=== PATIENT | male | born 1995 | race Caucasian/White ===

== ENCOUNTER 2018-06-19 11:40 | Emergency (ER) | payer BC ==
--- NOTE | 2018-06-19 13:45 | ED ---
Abdominal Pain/Male - HPI Summary HPI Summary: Pt is a 23 y/o male who presents to [facility] c/o abdominal pain. He states hes been having LUQ pain after eating and drinking for the past week and a half. He denies any N/V/D. Pain is now 2/10 in severity. - History of Current Complaint Chief Complaint: EDAbdPain Stated Complaint: ABD PAIN,VOMITING Time Seen by Provider: 06/19/18 13:17 Hx Obtained From: Patient Onset/Duration: Gradual Onset, Lasting Weeks - 1.5, Still Present Timing: Intermittent Severity Currently: Mild Pain Intensity: 2 Pain Scale Used: 0-10 Numeric Location: Discrete At: LUQ Radiates: No Aggravating Factor(s): Food, Other: - Drink Associated Signs And Symptoms: Negative: Nausea, Vomiting, Diarrhea - Allergies/Home Medications Allergies/Adverse Reactions: Allergies Allergy/AdvReac Type Severity Reaction Status Date / Time No Known Allergies Allergy Verified 06/19/18 11:49 PMH/Surg Hx/FS Hx/Imm Hx Cardiovascular History: Denies: Hx Hypertension Respiratory History: Denies: Hx Asthma Infectious Disease History: No Infectious Disease History: Denies: Traveled Outside the [place] in Last 30 Days - Family History Known Family History: Negative: Hypertension - Social History Alcohol Use: None Hx Substance Use: No Substance Use Type: Reports: None Hx Tobacco Use: No Smoking Status (MU): Never Smoked Tobacco Review of Systems Positive: Fever Positive: Abdominal Pain - LUQ. Negative: Vomiting, Diarrhea, Nausea All Other Systems Reviewed And Are Negative: Yes Physical Exam - Summary Physical Exam Summary: Appearance: Well appearing, no pain distress Skin: warm, dry, reflects adequate perfusion Head/face: normal Eyes: EOMI, MARTHA ENT: normal Neck: supple, non-tender Respiratory: CTA, breath sounds present Cardiovascular: RRR, pulses symmetrical Abdomen: mild LUQ tenderness, soft Bowel: present Musculoskeletal: normal, strength/ROM intact Neuro: normal, sensory motor intact, A&Ox3 Triage Information Reviewed: Yes Vital Signs On Initial Exam: Initial Vitals Temp Pulse Resp BP Pulse Ox 97.8 F 52 16 123/76 99 06/19/18 11:43 06/19/18 11:43 06/19/18 11:43 06/19/18 11:43 06/19/18 11:43 Vital Signs Reviewed: Yes Diagnostics - Vital Signs Vital Signs Temp Pulse Resp BP Pulse Ox 06/19/18 11:43 97.8 F 52 16 123/76 99 - Laboratory Result Diagrams: 06/19/18 13:33 06/19/18 13:33 Lab Statement: Any lab studies that have been ordered have been reviewed, and results considered in the medical decision making process. - Radiology CXR Xray Interpretation: No Acute Changes - Negative. ED physician reviewed radiology report. Radiology Interpretation Completed By: Radiologist - Ultrasound No standard instances Ultrasound Interpretation: No Acute Changes - Gallbladder US: Negative for gallbladder pathology. #. Low suspicion finding of minimal prominence of the intrahepatic bile ducts unchanged from the 2011 CT likely representing normal variation. ED physician reviewed radiology report. Ultrasound Interpretation Completed By: Radiologist Abdominal Pain Fem Course/Dx - Course Course Of Treatment: Pt is a 23 y/o male who presents to [facility] c/o abdominal pain. He states hes been having LUQ pain after eating and drinking for the past week and a half. He denies any N/V/D. Pain is now 2/10 in severity. A physical exam revealed mild LUQ tenderness. A CXR and gallbladder US were negative. A CT is not indicated at the present time to rule out pancreatitis, diverticulitis, or appendicitis. Final dx is non-specific abdominal pain. Pt will be discharged home and is agreeable with this plan. - Diagnoses Differential Diagnosis/HQI/PQRI: Constipation, Diverticulitis, Pancreatitis, Urinary Tract Infection Provider Diagnoses: Nonspecific abdominal pain Discharge - Sign-Out/Discharge Documenting (check all that apply): Patient Departure - Discharge Plan Condition: Stable Disposition: HOME Prescriptions: Pantoprazole TAB (NF) [Protonix TAB (NF)] 40 mg PO DAILY #30 tab Patient Education Materials: Abdominal Pain (ED) Referrals: [facility] PHYSICIAN REFERRAL [Outside] - 3 Days Additional Instructions: RETURN TO THE ED WITH ANY NEW OR WORSENING SYMPTOMS. - Billing Disposition and Condition Condition: STABLE Disposition: Home - Attestation Statements Document Initiated by Scribe: Yes Documenting Scribe: Karli Cox Provider For Whom Scribe is Documenting (Include Credential): Michele Ferrera MD Scribe Attestation: Karli Gutiérrez, scribed for Michele Ferrera MD on 06/19/18 at 1836. Scribe Documentation Reviewed: Yes Provider Attestation: The documentation as recorded by the Karli louie accurately reflects the service I personally performed and the decisions made by me, Michele Ferrera MD
[2018-06-19 13:51] LABS: ABS Basophils 0 10^3/ul (0-0.2); ABS Eosinophils 0.1 10^3/ul (0-0.6); ABS Lymphocytes 1.7 10^3/ul (1.0-4.8); ABS Monocytes 0.6 10^3/ul (0-0.8); ABS Neutrophils 3.5 10^3/ul (1.5-7.7); ABS Nucleated RBC 0 10^3/ul; Eosinophil % 1.3 % (0-6); Hematocrit 45 % (42-52); Hemoglobin 15.4 g/dl (14.0-18.0); Lymphocyte % 29.2 % (25-47); Mean Corpuscular HGB Conc 34 g/dl (31-36); Mean Corpuscular Hemoglobin 30 pg (27-31); Mean Corpuscular Volume 87 fL (80-94); Mean Platelet Volume 7.8 um3 (7.4-10.4); Nucleated Red Blood Cells % 0.1; Platelet Count 216 10^3/ul (150-450); Red Blood Count 5.16 10^6/ul (4.00-5.40); Red Cell Distribution Width 13 % (10.5-15)
[2018-06-19 14:06] LABS: EGFR Non-African American 79.5 (>60)
--- NOTE | 2018-06-19 14:17 | RAD ---
INDICATION: Epigastric pain COMPARISON: August 16, 2014 TECHNIQUE: PA and lateral dual-energy views were obtained. FINDINGS: Bones/Soft Tissues: There are no acute bony findings. Cardiomediastinal: The cardiomediastinal silhouette is normal. Lungs: There are no infiltrates. Pleura: There are no pleural effusions. Other: None IMPRESSION: NEGATIVE EXAMINATION.
--- NOTE | 2018-06-19 15:00 | RAD ---
Indication: Epigastric and LEFT abdominal pain for 7 days. Comparison: July 15, 2011 CT. Technique: RIGHT upper quadrant ultrasound. Report: Appropriate direction flow documented in the portal and hepatic veins. 17.4 cm liver is normal in echogenicity. Negative for focal hepatic lesions. Slight prominence of the intrahepatic bile ducts noted similar to the 2011 CT. 1.8 mm common bile duct. Adequately distended gallbladder with normal 1.1 mm wall is without pathologic finding. Negative for sonographic Gaxiola's sign. Unremarkable well visualized pancreas. Negative for ascites. 11.6 x 3.4 x 4.4 cm RIGHT kidney is unremarkable. IMPRESSION: #. Negative for gallbladder pathology. #. Low suspicion finding of minimal prominence of the intrahepatic bile ducts unchanged from the 2011 CT likely representing normal variation.
[2018-06-19] MEDS ORDERED: Pantoprazole TAB (NF) 40 MG TAB PO ONE (15:26)
[2018-06-19 16:13] LABS: Urine Appearance Clear; Urine Blood Negative (Negative); Urine Color Yellow; Urine Ketones 1+ (Negative); Urine Protein Negative (Negative); Urine Specific Gravity 1.027 (1.010-1.030); Urine Urobilinogen Positive (Negative)
[2018-06-19 16:59] VITALS: BP 110/80
== END 2018-06-19 16:59 | disposition home or self-care (01) ==
LOC: ED 11:40
DX: R10.12 Left upper quadrant pain (principal)
CPT/HCPCS: 36415; 71046; 76705; 80053; 81003; 83690; 84484; 85025; 99283; A9270-GY